=== PATIENT | female | born 1995 | race Caucasian/White ===

== ENCOUNTER 2016-09-12 18:27 | Emergency (ER) | payer BC ==
[~2016-09-12] VITALS: Ht 167.6 cm; Wt 66.1 kg
[~2016-09-12 18:27] MED LIST: BCPILLS PO; CITA20TA9 PO; LORA-741 PO; OXYC1TAB3 PO
[2016-09-12 18:30] VITALS: TEMP 37.3; Ht 167.6 cm; Wt 66.1 kg
[2016-09-12] MEDS ORDERED: GI COCKTAIL PO STA (18:44)
[2016-09-12] MEDS ORDERED: ONDANSETRON INJ 2 MG/ML 2 ML VIAL IV STA ×2 (18:44→21:16)
[2016-09-12] MEDS ORDERED: SODIUM CHLORIDE 0.9% 1000ML 1,000 ML IV STA (18:44)
[2016-09-12 19:10] LABS: BASO % 0.1 %; BASO ABS # 0.01 K/uL (0-0.2); COMPLETE YES; HEMATOCRIT 38.4 % (37-47); IG% 0.1 %; LYMPH % 34.6 %; LYMPH ABS # 2.56 K/uL (1.2-3.4); MEAN CELL VOLUME 88.1 fL (80-100); MEAN CORPUSCULAR HEMOGLOBIN 31.7 pg (25-34); MEAN CORPUSCULAR HGB CONC 35.9 g/dl (32-36); MEAN PLATELET VOLUME 9.4 fL (7.4-10.4); MONO % 9.3 %; NEUT % 55.9 %; PLATELET COUNT 230 K/uL (130-400); RED BLOOD COUNT 4.36 M/uL (4.2-5.4); WHITE BLOOD COUNT 7.39 K/uL (4.8-10.8)
[2016-09-12] MEDS ORDERED: ALUMINUM/MAGNESIUM SUSP 30 ML UDC ONE (19:16)
[2016-09-12] MEDS ORDERED: LIDOCAINE HCL 2% VISC SOLN 20 ML UDC ONE (19:16)
[2016-09-12 19:27] LABS: BUN/CREATININE RATIO 13.9 (10-20); CALCIUM 8.9 mg/dl (8.5-10.1); CREATININE 0.66 mg/dl (0.60-1.20); POTASSIUM 3.5 mmol/L (3.5-5.1)
[2016-09-12] MEDS ORDERED: IBUP-1050 PO (19:52)
[2016-09-12] MEDS ORDERED: ONDA4TAB46 PO (19:52)
[2016-09-12 20:00] LABS: URINE APPEARANCE CLEAR (CLEAR); URINE BILIRUBIN NEG (NEG); URINE COLOR YELLOW; URINE NITRITE NEG (NEG); URINE PH 7.5 (4.5-7.5); URINE SPECIFIC GRAVITY 1.009 (1.000-1.030); UROBILINOGEN NEG (NEG); ZZUR CULT IF INDIC CLEAN CATCH NO
[2016-09-12 20:11] LABS: MANUAL MICROSCOPIC REQUIRED? NO; REVIEW REQ? NO
--- NOTE | 2016-09-12 20:24 | DIAGNOSTIC IMAGING REPORT ---
ABDOMINAL ULTRASOUND, RIGHT UPPER QUADRANT HISTORY: Abdominal pain following eating in epigastric region . COMPARISON: None. FINDINGS: Pancreas: The pancreas demonstrates a normal echotexture. Liver: Unremarkable. Gallbladder: The gallbladder contracted resulting in suboptimal evaluation. However, there is no definite gallbladder wall thickening. No gallstones. CBD: 3 mm. Right kidney: No hydronephrosis. IMPRESSION: No significant abnormality identified within the right upper quadrant. Electronically signed by: Shaan Zeng M.D. 09/12/2016 8:22 PM Dictated Date/Time: 09/12/2016 8:20 PM
--- NOTE | 2016-09-12 20:53 | DIAGNOSTIC IMAGING REPORT ---
CHEST AND ABDOMEN 2 VIEWS HISTORY: nausea following eating and generalized abdominal pain. COMPARISON: FINDINGS: The lungs are clear. The cardiomediastinal silhouette is within normal limits. There is no pneumoperitoneum or pneumatosis. The bowel gas pattern is unremarkable. No evidence for bowel obstruction. No pathologic calcifications. Small to moderate amount of well-formed stool seen throughout the colon. IMPRESSION: No acute cardiopulmonary process. No evidence for bowel obstruction. Electronically signed by: Shaan Zeng M.D. 09/12/2016 8:51 PM Dictated Date/Time: 09/12/2016 8:50 PM
[2016-09-12] MEDS ORDERED: FAMO20TA11 PO (21:02)
[2016-09-12 21:31] VITALS: BP 121/83; PULSE 66; O2SAT 99
--- NOTE | 2016-09-12 21:43 | EMERGENCY ROOM VISIT NOTE ---
History Report prepared by Sheba: Tammi Groves Under the Supervision of: Dr. Jae Fuentes D.O. First contact with patient: 18:33 Chief Complaint: NAUSEA Stated Complaint: THROWING UP, NAUSEA, BLOODY STOOL, FATIGUE, GAUTHIER, Nursing Triage Summary: Pt c/o vomiting off and on x 1 month, has been every day for a week, went [facility] and [facility]. Today had blood stool (red) and dry heaved. Denies diarrhea. History of Present Illness The patient is a 21 year old female who presents to the Emergency Room with complaints of intermittent nausea beginning 1 month ago. The patient states that this week her nausea has worsened and she has been throwing up every day for a week. She complains of headache, tiredness, thirst, an episode of bloody stool today, abdominal pain across the whole center, intermittent diarrhea 1-2 times a week, and dry heaving that began 30 minutes ago. She states that when she eats it feels like she can feel the food coming back up. The patient denies any black stool, history of hemorrhoids, taking NSAIDs regularly, new medications or changes in medications, vaginal bleeding, unusual vaginal discharge, urinary symptoms, loss of consciousness, chest pain, and shortness of breath. She reports that she went to [facility] and they gave her Zofran. The patient states that Zofran and Tums help her pain for a short period of time. She notes that nothing makes her pain better or worse and laying down and eating acidic or spicy food does not change her pain level. She reports that her LNMP was 1 week ago. Source of History: patient Onset: 1 month ago Position: other (global) Timing: intermittent Modifying Factors (Worsening): other (none) Modifying Factors (Relieving): other (Tums, Zofran) Associated Symptoms: + abdominal pain, + diarrhea, + headache, No LOC, No SOB, No chest pain, No urinary symptoms Note: She complains of tiredness, thirst, an episode of bloody stool today, and dry heaving that began 30 minutes ago. The patient denies any black stool, history of hemorrhoids, taking NSAIDs regularly, new medications or changes in medications, vaginal bleeding, unusual vaginal discharge. Review of Systems See HPI for pertinent positives & negatives. A total of 10 systems reviewed and were otherwise negative. Past Medical & Surgical Medical Problems: (1) Anxiety (2) Depression (3) Dermatitis (4) Dermatitis Surgical Problems: (1) H/O lumpectomy Family History No pertinent family history stated. Social History Smoking Status: Never Smoker Housing Status: lives with roommate Occupation Status: [employer] student Current/Historical Medications Scheduled Control Pills ( Control Pills), 1 TAB PO DAILY Citalopram Hydrobromide (Celexa), 20 MG PO DAILY Famotidine (Pepcid), 20 MG PO DAILY Scheduled PRN Ibuprofen (Advil), 400 MG PO Q6 PRN for Headache or Pain Lorazepam (Ativan), 0.5 MG PO DAILY PRN for Anxiety Ondansetron Hcl (Zofran), 4 MG PO Q8 PRN for Nausea Allergies Coded Allergies: No Known Allergies (Unverified , 09/12/16) Physical Exam Vital Signs Date Time Temp Pulse Resp B/P Pulse Ox O2 Delivery O2 Flow Rate FiO2 09/12/16 21:31 66 18 121/83 99 Room Air 09/12/16 20:30 76 16 120/83 98 Room Air 09/12/16 18:30 37.3 73 16 176/84 98 Room Air Physical Exam GENERAL: sitting up in bed, no distress, non-toxic EYE EXAM: normal conjunctiva OROPHARYNX: no exudate, no erythema, lips, buccal mucosa, and tongue normal and mucous membranes are moist NECK: supple, no nuchal rigidity, no adenopathy, non-tender LUNGS: Clear to auscultation. Normal chest wall mechanics HEART: no murmurs, S1 normal and S2 normal ABDOMEN: abdomen soft, non-tender, normo-active bowel sounds, no masses, no rebound or guarding. BACK: Back is symmetrical on inspection and there is no deformity, no midline tenderness, no CVA tenderness. SKIN: no rashes and no bruising UPPER EXTREMITIES: upper extremities are grossly normal. LOWER EXTREMITIES: No pitting edema. NEURO EXAM: Normal sensorium, cranial nerves II-XII grossly intact, normal speech, no gross weakness of arms, no gross weakness of legs. RECTAL: Heme negative no hemorrhoids or fissures. Medical Decision & Procedures ER Provider Diagnostic Interpretation: Xray results per the radiologist and my interpretation. Other results have been interpreted by the radiologist and reviewed by me. CHEST AND ABDOMEN 2 VIEWS FINDINGS: The lungs are clear. The cardiomediastinal silhouette is within normal limits. There is no pneumoperitoneum or pneumatosis. The bowel gas pattern is unremarkable. No evidence for bowel obstruction. No pathologic calcifications. Small to moderate amount of well-formed stool seen throughout the colon. IMPRESSION: No acute cardiopulmonary process. No evidence for bowel obstruction. Electronically signed by: Shaan Zeng M.D. 09/12/2016 8:51 PM Dictated Date/Time: 09/12/2016 8:50 PM ABDOMINAL ULTRASOUND, RIGHT UPPER QUADRANT FINDINGS: Pancreas: The pancreas demonstrates a normal echotexture. Liver: Unremarkable. Gallbladder: The gallbladder contracted resulting in suboptimal evaluation. However, there is no definite gallbladder wall thickening. No gallstones. CBD: 3 mm. Right kidney: No hydronephrosis. IMPRESSION: No significant abnormality identified within the right upper quadrant. Electronically signed by: Shaan Zeng M.D. 09/12/2016 8:22 PM Dictated Date/Time: 09/12/2016 8:20 PM Laboratory Results 09/12/16 19:00 Red Blood Count 4.36, Mean Corpuscular Volume 88.1, Mean Corpuscular Hemoglobin 31.7, Mean Corpuscular Hemoglobin Concent 35.9, Mean Platelet Volume 9.4, Neutrophils (%) (Auto) 55.9, Lymphocytes (%) (Auto) 34.6, Monocytes (%) (Auto) 9.3, Eosinophils (%) (Auto) 0.0, Basophils (%) (Auto) 0.1, Neutrophils # (Auto) 4.12, Lymphocytes # (Auto) 2.56, Monocytes # (Auto) 0.69, Eosinophils # (Auto) 0.00, Basophils # (Auto) 0.01 09/12/16 19:00 Test 09/12/16 19:00 09/12/16 19:25 White Blood Count 7.39 K/uL (4.8-10.8) Red Blood Count 4.36 M/uL (4.2-5.4) Hemoglobin 13.8 g/dL (12.0-16.0) Hematocrit 38.4 % (37-47) Mean Corpuscular Volume 88.1 fL (80-100) Mean Corpuscular Hemoglobin 31.7 pg (25-34) Mean Corpuscular Hemoglobin Concent 35.9 g/dl (32-36) Platelet Count 230 K/uL (130-400) Mean Platelet Volume 9.4 fL (7.4-10.4) Neutrophils (%) (Auto) 55.9 % Lymphocytes (%) (Auto) 34.6 % Monocytes (%) (Auto) 9.3 % Eosinophils (%) (Auto) 0.0 % Basophils (%) (Auto) 0.1 % Neutrophils # (Auto) 4.12 K/uL (1.4-6.5) Lymphocytes # (Auto) 2.56 K/uL (1.2-3.4) Monocytes # (Auto) 0.69 K/uL (0.11-0.59) Eosinophils # (Auto) 0.00 K/uL (0-0.5) Basophils # (Auto) 0.01 K/uL (0-0.2) RDW Standard Deviation 39.4 fL (36.4-46.3) RDW Coefficient of Variation 12.2 % (11.5-14.5) Immature Granulocyte % (Auto) 0.1 % Immature Granulocyte # (Auto) 0.01 K/uL (0.00-0.02) Anion Gap 11.0 mmol/L (3-11) Est Creatinine Clear Calc Drug Dose 125.1 ml/min Estimated GFR () 145.3 Estimated GFR (Non- 125.4 BUN/Creatinine Ratio 13.9 (10-20) Calcium Level 8.9 mg/dl (8.5-10.1) Total Bilirubin 0.3 mg/dl (0.2-1) Direct Bilirubin 0.1 mg/dl (0-0.2) Aspartate Amino Transf (AST/SGOT) 15 U/L (15-37) Alanine Aminotransferase (ALT/SGPT) 22 U/L (12-78) Alkaline Phosphatase 38 U/L (45-117) Total Protein 6.6 gm/dl (6.4-8.2) Albumin 3.8 gm/dl (3.4-5.0) Lipase 140 U/L (73-393) Urine Color YELLOW Urine Appearance CLEAR (CLEAR) Urine pH 7.5 (4.5-7.5) Urine Specific Iva 1.009 (1.000-1.030) Urine Protein NEG (NEG) Urine Glucose (UA) NEG (NEG) Urine Ketones NEG (NEG) Urine Occult Blood NEG (NEG) Urine Nitrite NEG (NEG) Urine Bilirubin NEG (NEG) Urine Urobilinogen NEG (NEG) Urine Leukocyte Esterase NEG (NEG) Urine WBC (Auto) 0 /hpf (0-5) Urine RBC (Auto) 0-4 /hpf (0-4) Urine Hyaline Casts (Auto) 0 /lpf (0-5) Urine Epithelial Cells (Auto) 5-10 /lpf (0-5) Urine Bacteria (Auto) NEG (NEG) Urine Test NEG (NEG) Laboratory results per my review. Medications Administered Medications (Trade) Dose Ordered Sig/Obed Route Start Time Stop Time Status Last Admin Dose Admin Sodium Chloride (Nss 1000ml) 1,000 ml @ 999 mls/hr Q1H1M STAT IV 09/12/16 18:44 09/12/16 19:44 DC 09/12/16 19:21 999 MLS/HR Ondansetron HCl (Zofran Inj) 4 mg NOW STAT IV 09/12/16 18:44 09/12/16 18:47 DC 09/12/16 19:23 4 MG Al Hydroxide/Mg Hydroxide (Maalox Susp) 30 ml STK-MED ONCE .ROUTE 09/12/16 19:16 09/12/16 19:17 DC 09/12/16 19:23 30 ML Lidocaine HCl (Viscous Lidocaine 2% Soln) 20 ml STK-MED ONCE .ROUTE 09/12/16 19:16 09/12/16 19:18 DC 09/12/16 19:23 20 ML Ondansetron HCl (Zofran Inj) 4 mg NOW STAT IV 09/12/16 21:16 09/12/16 21:17 DC 09/12/16 21:29 4 MG ED Course ED COURSE: Vital signs were reviewed and normal The patients medical record was reviewed The above diagnostic studies were performed and reviewed. ED treatments and interventions as stated above. 1832: The patient was evaluated in room C2. A complete history and physical examination was performed. 1843: GI Cocktail 30ml PO, Zofran Inj 4mg IV, Sodium Chloride 1000ml @ 999mls/ hr IV. 2002: I revaluated the patient she is doing fine. 2115: Zofran Inj 4mg IV. 2123: I did a rectal exam on the patient, no hemorrhoids and heme negative stool. 2030: I reevaluated the patient and updated her. She is doing better after the GI cocktail. 2037: Upon reevaluation, the patient is hemodynamically stable.I discussed my findings with the patient and she understands and agrees with the treatment plan. Based on the patients age, coexisting illnesses, exam and lab findings the decision to treat as an outpatient was made. The patient remained stable while under my care. The patient appeared well at the time of discharge. Medical Decision Differential diagnoses includes but is not limited to gastritis, peptic ulcer disease, GERD, gallbladder disease, pancreatitis, small bowel obstruction, acute coronary syndrome, pericarditis, ischemic bowel, irritable bowel disease, irritable bowel syndrome, appendicitis, diverticulitis, malignancy, hernia, urinary tract infection, torsion, /ectopic , perforation, trauma, infectious. Patient is a 21-year-old female who presents the ER for intermittent abdominal pain which has been present for the past week. She notes that she has been having nausea intermittently as well. She was at [employer] yesterday and given Zofran which has been helping. She notes she has been taking Tums as well which has been helping. She notes that when the nausea recurs it feels like food is coming back up into her esophagus. Patient was given a GI cocktail which improved her epigastric discomfort. She did still have some nausea and consequently was given Zofran. Ultrasound of right upper quadrant was unremarkable. Obstruction series was negative as well. Labs show no significant leukocytosis or anemia. BMP along with LFTs, bilirubin and lipase was normal. UA was negative. was negative. Rectal was negative. Vitals are stable. With her benign exam and negative rectal exam, elected to discharge her as her symptoms improved with Tums and a GI cocktail. I favor her rectal bleed was secondary to hemorrhoid/intermittent diarrhea as it was not dark tarry and there is no elevation in her BUN to suggest that this is an upper GI bleed. Her abdominal exam is completely benign. She was in the ER for 3 hours. Hemodynamically stable. I discharged her on Pepcid and encouraged her to continue Zofran and follow-up with her PCP in the next 48 hours if the symptoms continue. Discussed with Pt concerning signs and symptoms to watch out for. Pt was instructed to follow up with their PCP and discussed with the patient their option to return to the ED at anytime for persistent or worsening symptoms. The appropriate anticipatory guidance and out-patient management, including indications for return to the emergency department, were explained at length to the patient and understood. Impression Primary Impression: Gastritis Additional Impression: Nausea Scribe Attestation The scribe's documentation has been prepared under my direction and personally reviewed by me in its entirety. I confirm that the note above accurately reflects all work, treatment, procedures, and medical decision making performed by me. Departure Information Dispostion Home / Self-Care Prescriptions Famotidine (Pepcid) 20 Mg Tab 20 MG PO DAILY, #30 TAB Prov: Jae Fuentes, DO 09/12/16 Referrals No Doctor, Assigned (PCP) Forms HOME CARE DOCUMENTATION FORM, IMPORTANT VISIT INFORMATION Patient Instructions My [facility] Additional Instructions Please follow up with your primary care doctor with in the next 24 hours. Any worsening of your symptoms, please return to the ED immediately. This includes fevers greater than 100.4, persistent vomiting/diarrhea, bloody stool, worsening pain, or any other concerning signs or symptoms from your standpoint. Please take Pepcid as needed for possible reflux. Problem Qualifiers Primary Impression: Gastritis Gastritis type: other gastritis Chronicity: acute Gastritis bleeding: without bleeding Qualified Codes: K29.00 - Acute gastritis without bleeding
== END 2016-09-12 21:39 | disposition home or self-care (01) ==
LOC: C.EDB 18:28 → C.EDC 21:39
DX: K29.00 Acute gastritis without bleeding (principal); F41.9 Anxiety disorder, unspecified; F32.9 Major depressive disorder, single episode, unspecified; Z79.3 Long term (current) use of hormonal contraceptives; Z79.899 Other long term (current) drug therapy

== ENCOUNTER → 2016-10-19 | Outpatient (CLI) | payer BC ==
[~2016-10-19] MED LIST changes: +FAMO20TA11 PO; +IBUP-1050 PO; +ONDA4TAB46 PO; -OXYC1TAB3 PO
--- NOTE | 2016-10-19 09:31 | DIAGNOSTIC IMAGING REPORT ---
ABDOMINAL ULTRASOUND COMPLETE HISTORY: Pain. Nausea. RUQ ABDOMINAL PAIN, NAUSEA AND VOMITING. COMPARISON: None. FINDINGS: Pancreas: The pancreas demonstrates a normal echotexture. Liver: Unremarkable. Gallbladder: No gallbladder wall thickening. No gallstones. CBD: 3 mm Kidneys: No hydronephrosis. Spleen: Normal in size. Aorta: Normal in caliber. IVC: Patent. IMPRESSION: Normal study Electronically signed by: Mark Merida M.D. 10/19/2016 9:30 AM Dictated Date/Time: 10/19/2016 9:28 AM
[2016-10-19 13:34] LABS: BASO % 0.2 %; BASO ABS # 0.01 K/uL (0-0.2); COMPLETE YES; HEMATOCRIT 40.7 % (37-47); LYMPH % 27.4 %; LYMPH ABS # 1.58 K/uL (1.2-3.4); MEAN CELL VOLUME 88.1 fL (80-100); MEAN CORPUSCULAR HEMOGLOBIN 31.4 pg (25-34); MEAN CORPUSCULAR HGB CONC 35.6 g/dl (32-36); MEAN PLATELET VOLUME 9.9 fL (7.4-10.4); MONO % 10.1 %; NEUT % 62.3 %; PLATELET COUNT 257 K/uL (130-400); RED BLOOD COUNT 4.62 M/uL (4.2-5.4); WHITE BLOOD COUNT 5.76 K/uL (4.8-10.8)
[2016-10-19 14:07] LABS: ALB/GLOB RATIO 1.2 (0.9-2); ALKALINE PHOSPHATASE 36 U/L (45-117); ALT/SGPT 19 U/L (12-78); AMYLASE 54 U/L (25-115); AST/SGOT 16 U/L (15-37); BLOOD UREA NITROGEN 7 mg/dl (7-18); BUN/CREATININE RATIO 9.1 (10-20); CALCIUM 9.3 mg/dl (8.5-10.1); CARBON DIOXIDE 27 mmol/L (21-32); CHLORIDE 104 mmol/L (98-107); CREATININE 0.77 mg/dl (0.60-1.20); GLUCOSE 80 mg/dl (70-99); SODIUM 138 mmol/L (136-145)
== END | disposition home or self-care (01) ==
LOC: C.ULTRBC 08:54
PROVIDERS: ATTEND Family Medicine
DX: R11.2 Nausea with vomiting, unspecified (principal)